=== PATIENT | female | born 1980 | race Caucasian/White ===

== ENCOUNTER 2019-09-30 13:58 | Outpatient (CLI) | payer BC, SELFPAY ==
--- NOTE | ~2019-09-30 | XR_ITS ---
XR lumbar spine 2-3V DATE: 09/30/2019 14:27 INDICATION: Low back pain, left hip pain. No known injury. TECHNIQUE: AP, lateral, coned lateral lumbosacral views COMPARISON: None FINDINGS: There is prominent loss of interspace height at L4-5. The remaining lumbar and lumbosacral interspaces are relatively preserved. No fracture or bone destruction. There is minimal levoscoliosis of the lumbar spine. The included low er thoracic and lumbar pedicles are intact. The sacroiliac joints are intact. Surgical clip overlies right upper quadrant, likely due to cholecystectomy. IUD overlies the mid pelvis. IMPRESSION: Prominent loss of interspace height at L4-5 Mild levoscoliosis of lumbar spine Reviewed, dictated and finalized at location A.
--- NOTE | ~2019-09-30 | XR_ITS ---
EXAMINATION: XR hip LT min 2V DATE: 09/30/2019 14:26 INDICATION: Left hip pain. TECHNIQUE: 3 views of left hip were obtained. COMPARISON: None. FINDINGS: Bone alignment is normal. No fracture. Left hip joint space is normal. There is an intraute rine device in expected position. IMPRESSION: 1. Normal left hip. Reviewed, dictated and finalized at location A. IMPRESSION: 1. Normal left hip.
== END 2019-09-30 13:59 | disposition home or self-care (01) ==
PROVIDERS: PCP Family Medicine; Visit Provider Family Medicine
DX: M54.5 Low back pain (principal); M25.552 Pain in left hip
CPT/HCPCS: 72100; 73502

== ENCOUNTER 2019-11-19 13:47 | Outpatient (CLI) | payer BC, SELFPAY ==
[2019-11-19 14:38] LABS: Basophils Absolute Auto 0.1 K/mm3 (0.0-0.1); Basophils Percent Auto 0.6 % (0.2-1.2); Eosinophils Absolute Auto 0.2 K/mm3 (0-0.3); Eosinophils Percent Auto 2.6 % (0-4.4); Hematocrit 35.9 % (37.0-47.0); Hemoglobin 11.4 g/dL (12.0-15.0); Immature Granulocyte Absolute 0.02 K/mm3 (0.00-0.031); Immature Granulocyte Percent A 0.3 % (0-0.5); Lymphocytes Absolute Auto 2.77 K/mm3 (0.9-3.2); Lymphocytes Percent Auto 34.8 % (18.3-44.2); Mean Corpuscular HGB Conc 31.8 g/dl (32-36); Mean Corpuscular Hemoglobin 26.6 pg (26-34); Mean Corpuscular Volume 83.7 fl (80-100); Mean Platelet Volume 10.6 fl (7.4-10.4); Monocytes Absolute Auto 0.6 K/mm3 (0.1-0.6); Monocytes Percent Auto 7.5 % (2.6-8.5); Neutrophils Absolute Auto 4.3 K/mm3 (1.3-6.7); Neutrophils Percent Auto 54.2 % (45.5-73.1); Platelet Count Result 286 k/mm3 (150-375); Red Blood Count 4.29 M/mm3 (4.2-5.4); Red Cell Distribution Width 13.8 % (11.5-14.5)
[2019-11-19 14:52] LABS: CRP 0.7 mg/dL (<1.0)
[2019-11-19 15:23] LABS: Erythrocyte Sedimentation Rate 19 mm/hr (0-20)
== END 2019-11-19 13:48 | disposition home or self-care (01) ==
PROVIDERS: PCP Family Medicine; Visit Provider Orthopaedic Surgery
DX: M54.5 Low back pain (principal)
CPT/HCPCS: 36415; 85025; 85652; 86140; 87040

== ENCOUNTER 2023-07-10 14:34 | Outpatient (CLI) | payer BC, SELFPAY ==
--- NOTE | ~2023-07-10 | XR_ITS ---
EXAM: XR hip LT 2V w AP pelvis DATE: 07/10/2023 14:58 HISTORY: PAIN OF LEFT HIP JOINT X 1 MONTH . COMPARISON: 09/30/2019. FINDINGS: Normal mineralization. No fracture or dislocation. No lytic or blastic lesion. Joint space s are maintained. Disc space narrowing in the lower lumbar spine. Degenerative changes at the pubic s ymphysis. No erosion or periosteal change. IUD. Pelvic phleboliths. IMPRESSION: No acute osseous finding in the pelvis or left hip. Lumbar degenerative disc disease. Mil d osteitis pubis. Reviewed, dictated and finalized at location K. IMPRESSION: No acute osseous finding in the pelvis or left hip. Lumbar degenera tive disc disease. Mild osteitis pubis.
== END 2023-07-10 14:35 | disposition home or self-care (01) ==
LOC: ANHIMG 14:36
PROVIDERS: PCP Family Medicine; Visit Provider Family Medicine
DX: M25.552 Pain in left hip (principal)
CPT/HCPCS: 73502

== ENCOUNTER 2024-12-21 03:28 | Emergency (ER) | payer OTHER, SELFPAY ==
--- OUTSIDE RECORDS SUMMARY | 2012-04-01 18:00 | XMS_ITS | Continuity of Care Document ---
Author Organization [facility] Address [address] [place] [address] Phone Care Team Providers Care Biofuels Production Manager Name Role Phone Unavailable Unavailable Unavailable Advance Directives Directive Yes / No Effective Date File Name No Information Encounters Encounter Description Practice Location Reason(s) For Visit Diagnoses Date Provider Providers Copied on Encounter [facility], [address], [place], [place], [id number], [place] tel:[phone] [facility] OUTPATIENT No Information 2201 2 No Information Referring Provider: CHHAYA YADAV N, [address] [place], [address]. tel:[phone] Family History Family Member Type Diagnosis Age At Onset No Information Payers Payer name Insurance type Covered alliance party ID Authoraaron benson(s) [facility] PPO [id number] Social History Type Description Quantity Date Captured Comments Sex Female Smoking Status No Information Chief Complaint And Reason For Visit No Information History Of Present Illness Encounter Date Complaint History Of Prese nt Illness No Information Instructions Date Instruction Additional Infor mation No Information Assessments Type Assessment Date No Information
--- OUTSIDE RECORDS SUMMARY | 2024-12-21 03:30 | XMS_ITS | Continuity of Care Document ---
Author Name [facility] Organization [facility] Care Team Providers Care Component Inspector Name Role Phone [facility] Unavailable Unavailable Problems Combined list of problems from Department of Defense and Veterans Affairs facilities. It does not include entries that were removed or entered in error. Problem Status Onset Date Problem Type Date of Resolution Comments Source visit for: administrative purpose Inactive Condition DoD ESOPHAGEAL REFLUX Active Condition [facility] MIGRAINE HEADACHE Active Condition di scussed migraine journal, which she will start today. I will start trial of abortive meds and she will see me in 30 days [facility] abdominal pain Inactive Condition f/u prn DoD Encounters Combined list of: 1) Encounters from Department of Veterans Affairs facilities going backup to the last 18 months, not all VA inpatient encounters are included; 2) Encounters from the Department of [facility] facilities going backup to 280 months. Location Location Details Encounter Type Encounter Number Reason For Visit Attending Provider ADM Date DC Date Status Disposition Source [address] [place] [address])([facility] Non-[facility]) OUTPATIENT [id number] stomach pains KATIANA COONEY 08/04 Released w/o Limitations [address] [place] [address])(F amily Practic e Non-[facility]) [address] [place] [address])([facility]am [facility] Practice Non-[facility]) OUTPATIENT [id number] headach es KATIANA COONEY 10/28 Released w/o Limitations [address] [place] [address])(F amily Practic e Non-[facility]) [address] [place] [address])([facility]am [facility] Practice Non-[facility]) TELE CONSULT [id number] L ARM/RADHA [facility] PAIN BOONE DON 03/[address] [place] [address])(F amily Practic e Non-GME [facility]) Procedures Combined list of: 1) Procedures from Department of Veterans Affairs facilities going back up to thelast 18 months, not all VA non-surgical procedures are included; 2) All procedures from the Department of [facility] facilities. Procedure Procedure Type Code Date Perfomer Comments Sour e ELECTROCARDIOGRAM, ROUTINE ECG WITH AT LEAST 12 LEADS; WITH INTERPRETATION AND REPORT 03/10/2005 [facility] NONINVASIVE EAR OR PULSE OXIMETRY FOR OXYGEN SATURATION; SINGLE DETERMINATION 09/06/2002 [facility] Social History Combined list of available smoking, tobacco, and other social history from Department of Defense and Veterans Affairs facilities. Social History Type Response Date Comment [facility] This section is an empty social history section. DoD
--- OUTSIDE RECORDS SUMMARY | 2024-12-21 03:31 | XMS_ITS | Clinical Summary ---
Author Organization [facility] Address [facility] [place] [address] Care Team Providers Care Packaging Line Operator Name Role Phone Unavailable Primary Care Provider Unavailabl e Social History Tobacco Use Types Packs/Day Years Used Date Smoking Tobacco: Never Assessed Comments Unknown Sex and Gender Information Value Date Recorded Sex Assigned at Not on file Legal Sex Female 7:43 PM CDT Gender Identity Not on file Sexual Orientation Not on file Plan of Treatment Health Maintenance Due Date Last Done Comments Cervical Cancer Screening Pa p Smear (Age 30 to 64) Every 3 Years 1982 Annual Physical 1985 Hepatitis C 2000 DTaP, Tdap and Td Vaccines ( 1 - Tdap) 2001 Hepatitis B Vaccines (1 of 3 - 19+ 3-dose series) 2001 HPV Vaccines (1 - 3-dose SCD M series) 2009 Cervical Cancer Screening Pa p with HPV Testing (Age 30 to 64) Every 5 Years 2012 Cervical Cancer Screening with HPV 2012 Mammogram Screening 2022 COVID-19 Vaccine ( - 2023-2 5 season) 2023 Meningococcal B Vaccine Aged Out No l onger eligible based on patient's age to complete this topic Meningococcal Vaccine Aged Out No kady kimberly eligible based on patient's age to complete this topic Pneumococcal Vaccine: Pediat rics (0 to 5 Years) and At-Risk Patients (6 to 49 Years) Aged Out No longer eligible b ased on patient's age to complete this topic RSV Immunizations Under 20 Months Aged Out No longer eligible based on patient's age to complete this topic
--- OUTSIDE RECORDS SUMMARY | 2024-12-21 03:31 | XMS_ITS | Encounter Summary ---
Author Organization [facility] Address [address] [place] [address] Phone Care Team Providers Care Grants Analyst Name Role Phone Leslie Mabry PRETZEL PACKER Primary Care Provider + Mercedes Soto MD Primary Care Provider + Angely Obregon PRETZEL PACKER Unavailable [phone] Encounter Details Date Type Department Care Team (Latest Contact Info) Description 06/15/2017 Orders Only [facility] CONVERSION Scanning, Provider Social History Tobacco Use Types Packs/Day Years Used Date Smoking Tobacco: Never Smokeless Tobacco: Never Alcohol Use Standard Drinks/Week Comments Yes 0 (1 standard drink = 0.6 oz pur e alcohol) Comments Unknown Sex and Gender Information Value Date Recorded Sex Assigned at Not on file Legal Sex Female 2:18 AM WORKPLACE TRAINER AND ASSESSOR Gender Identity Not on file Sexual Orientation Not on file documented as of this encounter Plan of Treatment Not on file documented as of this encounter Procedures Procedure Name Priority Date/Time Associated Diagnosis Comments VASCULAR LABORATORY REPORT 06/15/2017 10:59 PM WORKPLACE TRAINER AND ASSESSOR documented in this encounter Results * VASCULAR LABORATORY REPORT (06/15/2017 10:59 PM WORKPLACE TRAINER AND ASSESSOR) Anatomical Region Laterality Modality Ultrasound us Provider Scanning CV VASCULAR PROCEDURES Final R esult documented in this encounter Visit Diagnoses Not on filedocumented in this encounter Care Teams Grants Analyst Relationship Specialty Start Date End Date Leslie Mabry NP PCP - General 06/09/17 12/19/17 Mercedes Soto MD PCP - General Family Medicine 12/20/17 Angely Obregon NP Nurse Practitioner Obstetrics and Gynecology 07/14/20 documented as of this encounter
--- OUTSIDE RECORDS SUMMARY | 2024-12-21 03:31 | XMS_ITS | Clinical Summary ---
Author Organization [facility] [address] Address [address] [facility] [address] [place] [address] Phone Care Team Providers Care Reservation Manager Name Role Phone Marta Fernandez MD Primary Care Provider [phone] Allergies No known active allergies Medications levonorgestreL (MIRENA) 21 mcg/24 hr (8 yrs) 52 mg IUD 1 Each by Intrauterine route. Active metoprolol succinate (TOPROL XL) 25 mg Extended Release 24 hour tablet Take 25 mg by mouth daily. Active omeprazole (PriLOSEC) 20 mg Capsule, Delayed Release(E.C.) Take 20 mg by mouth daily. 2 Active hyoscyamine 0.[address] 1 Tablet (0.125 mg) under tongue every 4 hours as needed for Spasm. 30 Tablet 11 4 Active Active Problems Problem Noted Date Diagnosed Date Epigastric abdominal pain 11/28/2023 Malignant neoplasm of pancreas Encounters Date Type Department Care Team Description 12/04/2024 External Device Data ST[facility] ABSTRACTION Provider, Abstract 11/13/2024 External Device Data [facility] ABSTRACTION Provider, Abstract 11/13/2024 External Device Data [facility] ABSTRACTION Provider, Abstract 11/12/2024 External Device Data ST[facility] ABSTRACTION Provider, Abstract 10/22/2024 External Device Data ST[facility] ABSTRACTION Provider, Abstract 09/24/2024 External Device Data ST[facility] ABSTRACTION Provider, Abstract from Last 3 Months Family History Medical History Relation Name Comments Colon Cancer Neg Hx Social History Tobacco Use Types Packs/Day Years Used Date Smoking Tobacco: Former Cigarettes Smokeless Tobacco: Never Alcohol Use Standard Drinks/Week Comments Yes 0 (1 standard drink = 0.6 oz pur e alcohol) Comments No Sex and Gender Information Value Date Recorded Sex Assigned at Not on file Legal Sex Female 6:11 AM CAR LOT ATTENDANT Gender Identity Not on file Sexual Orientation Not on file Last Filed Vital Signs Vital Sign Reading Time Taken Comments Blood Pressure 108/78 11/28/2023 12:56 PM CDT Pulse 82 11/28/2023 12:56 PM CDT Temperature - - Respiratory Rate - - Oxygen Saturation - - Inhaled Oxygen Concentration - - Weight 104.3 kg (230 lb) 11/28/2023 12:56 PM CDT Height 160 cm (5' 3) 11/28/2023 12:56 PM CDT Body Mass Index 40.74 11/28/2023 12:56 PM CDT Plan of Treatment Health Maintenance Due Date Last Done Comments HEPATITIS B VACCINES (1 of 3 - 19+ 3-dose series) 2001 HPV/Cotest (21-29) 2003 HPV VACCINES (1 - 3-dose SCD M series) 2009 HPV/Cotest (30-65) 2012 BREAST CANCER SCREENING 08/09/2024 08/10/19 24, 08/10/2023, 07/15/2022, Additional history exists INFLUENZA VACCINE (#1) 2024 CERVICAL CANCER SCREENING 10/10/2026 PAP SMEAR 10/10/2026 10/11/2023 DTAP/TDAP/TD VACCINES (2 - T d or Tdap) 11/10/2027 11/09/[address] FEDERAL Care Teams Reservation Manager Relationship Specialty Start Date End Date Marta Fernandez MD [address] [phone] [facility] - General 04/17/15
--- OUTSIDE RECORDS SUMMARY | 2024-12-21 03:31 | XMS_ITS | Clinical Summary ---
Author Organization [facility] [address] Address [address] [place] [address] Care Team Providers Care Suture Winder Hand Name Role Phone Mercedes Soto MD Primary Care Provider + Angely Obregon ELECTRIC METER INSTALLER Unavailable [phone] Allergies No known active allergies Medications metoprolol XL (TOPROL-XL) 25 mg 24 hr tablet Take 1 tablet (25 mg total) by mouth daily Active multivitamin capsule Take 1 capsule by mouth daily Active levonorgestrel (MIRENA) IUD 1 each by intrauterine route once Active omeprazole (PriLOSEC) 20 mg capsule Take 1 capsule (20 mg total) by mouth daily 2 Active drospirenone, contraceptive, (Slynd) tablet tablet Take 1 tablet every day by oral route as directed for 60 days. 4 Active Active Problems Problem Noted Date Diagnosed Date Mass of pancreas 01/29/2019 -induced hypertension 11/24/2014 Overview (08/05/2016): Gestational hypertension, antepartum Ventricular premature beats 11/24/2014 Overview (08/05/2016): Symptomatic PVCs Gastroesophageal reflux disease 11/24/2014 Overview (08/05/2016): GERD (gastroesophageal reflux disease) Adiposity 11/24/2014 Overview (08/05/2016): Obesity Tobacco dependence syndrome 09/14/2013 Overview (08/04/2016): TOBACCO USE DISORDER Morbid obesity 09/14/2013 Overview (08/04/2016): MORBID OBESITY Palpitations 09/14/2013 Overview (08/04/2016): PALPITATIONS Premature beats 09/14/2013 Overview (08/05/2016): PREMATURE BEATS NEC Surgical History Surgery Date Site/Laterality Comments BREAST BIOPSY 07/15/2020 Left Medical History Medical History Date Comments Ventricular premature depolarization Pancreatic cancer (HCC) Hypertension Anemia Family History Medical History Relation Name Comments Hypertension Father Hypertension; Other Mother A&W; No Known Problems Sister 1 No Known Problems Sister 2 No Known Problems Sister 3 Relation Name Status Comments Father Alive Mother Alive Sister 1 Alive Sister 2 Alive Sister 3 Alive Social History Tobacco Use Types Packs/Day Years Used Date Smoking Tobacco: Former Cigarettes 1 2012 Smokeless Tobacco: Never Tobacco Cessation:Counseling Given: Not Answered Alcohol Use Standard Drinks/Week Comments Yes 0 (1 standard drink = 0.6 oz pur e alcohol) AUDIT-C Answer Date Recorded Q1: How often do you have a drink containing alc ohol? 2-3 times a week 07/21/2021 Q2: How many drinks containi ng alcohol do you have on a typical day when you are drinking? 3 or 4 07/21/2021 Q3: How often do you have si x or more drinks on one occasion? Less than monthly 07/21/2021 Comments No Sex and Gender Information Value Date Recorded Sex Assigned at Not on file Legal Sex Female 2:18 AM CURER ACID DRUM Gender Identity Not on file Sexual Orientation Not on file Obstetrics History Last Filed Vital Signs Vital Sign Reading Time Taken Comments Blood Pressure 115/82 04/15/2024 1:46 PM CURER ACID DRUM Pulse 66 04/15/2024 1:46 PM CURER ACID DRUM Temperature 36.8 C (98.2 F) 04/15/2024 1:46 PM CURER ACID DRUM Respiratory Rate 16 04/15/2024 1:46 PM CURER ACID DRUM Oxygen Saturation 98% 04/15/2024 1:46 PM CURER ACID DRUM Inhaled Oxygen Concentration - - Weight 107.8 kg (237 lb 9.6 oz) 04/15/2024 1:46 PM CURER ACID DRUM Height 162.6 cm (5' 4.02) 04/15/2024 1:46 PM CS T Body Mass Index 40.76 04/15/2024 1:46 PM CURER ACID DRUM Plan of Treatment Health Maintenance Due Date Last Done Comments Cervical Cancer Screening 1982 Depression Screening 1982 Hepatitis C Screening 1982 Varicella Vaccines (1 of 2 - 13+ 2-dose series) 1995 Hepatitis B Screening 2000 Regular Well Visit/Exam 18-64 2000 HPV Vaccines (1 - 3-dose SCDM series) 2009 Influenza Vaccine (#1) 2024 Breast Cancer Screening-Mammogram 08/23/2025 08/23/2024, 08/10/2023, 07/15/2022, Additional history exists DTaP/Tdap/Td Vaccine (2 - Td or Tdap) 11/10/2027 11/09/2017 Pneumococcal vaccine <65 Aged Out No longer eligible based on patient's age to complete this topic Procedures Procedure Name Priority Date/Time Associated Diagnosis Comments SCREENING MAMMOGRAM BILATERAL W MAURICIO Schedule Routine, Read Routine (OP Routine) 08/23/2024 12:34 PM CDT Screening mammogram, encounter for from Last 3 Months or Most Recently Relevant to Health Maintenance Results * Screening Mammogram Bilateral W Mauricio (08/23/2024 12:34 PM CDT) Anatomical Region Laterality Modality Breast Bilateral Mammography Narrative 08/26/2024 3:25 PM CDT Mammogram Technique: Bilateral Digital Breast Tomosynthesis, Bilateral C-view 2D Screening mammogram. Views obtained: bilateral craniocaudal and bilateral mediolateral oblique. Computer Aided Detection was performed. Mammogram Findings: The present examination has been compared to prior imaging studies performed at [facility] on 06/09/2017, 07/07/2020, 07/15/2022 and 08/10/2023. There are scattered areas of fibroglandular density. There is no suspicious abnormality in either breast. There are no significant changes from the prior study. Impression: There is no mammographic evidence of malignancy. Annual screening mammography is recommended. OVERALL FINAL ASSESSMENT: BI-RADS CATEGORY 1: Negative. Procedure Note Denisha Levi MD - 08/26/2024 Mammogram Technique: Bilateral Digital Breast Tomosynthesis, Bilateral C-view 2D Screening mammogram. Views obtained: bilateral craniocaudal and bilateral mediolateral oblique. Computer Aided Detection was performed. Mammogram Findings: The present examination has been compared to prior imaging studies performed at [facility] on 06/09/2017, 07/07/2020,07/15/2022 and 08/10/2023. There are scattered areas of fibroglandular density. There is no suspicious abnormality in either breast. There are no significant changes from the prior study. Impression: There is no mammographic evidence of malignancy. Annual screening mammography is recommended. OVERALL FINAL ASSESSMENT: BI-RADS CATEGORY 1: Negative. us Self Screening Mammogram IMG MAMMO PROCEDURES Fi nal Result from Last 3 Months or Most Recently Relevant to Health Maintenance Insurance Datam [facility] [employer] [place] [address] [employer] [address] [place] [phone] Advance Directives For more information, please contact: [phone] * Full Code (Latest Code Status on File) Date Activated Date Inactivated Comments 07/21/2021 7:58 AM 07/21/2021 1:53 PM Care Teams Suture Winder Hand Relationship Specialty Start Date End Date Mercedes Soto MD PCP - General Family Medicine 12/20/17 Angely Obregon NP Nurse Practitioner Obstetrics and Gynecology 07/14/20
--- OUTSIDE RECORDS SUMMARY | 2024-12-21 03:31 | XMS_ITS | Clinical Summary ---
Author Organization [facility] Facility Address [address] [address] Care Team Providers Care Barrel Straightener Name Role Phone Bel Jean STARS ANALYTICAL LEAD-C Primary Care Provider [phone] Allergies No known active allergies Medications hydroCHLOROthiaz vasquez 25 MG tablet Take 25 mg by mouth if needed Active hydrOXYzine (ATARAX) 25 MG tablet Take 25 mg by mouth every 8 (eight) hours if needed 06/19/2024 Active metoprolol succinate XL (TOPROL XL) 25 MG 24 hr tablet Take 1 tablet by mouth 1 (one) time each day 06/19/2024 Active omeprazole OTC (PriLOSEC OTC) 20 MG EC tablet Take 20 mg by mouth 1 (one) time each day Do not crush, chew, or split. Active Active Problems Problem Noted Date Diagnosed Date Obese class II 10/22/2024 Overview (10/22/2024): BMI = 41.6 Gastroesophageal reflux disease 09/10/2024 Hypoglycemia 09/06/2024 Hyperlipidemia 06/19/2024 Anxiety disorder 08/02/2022 Essential hypertension 05/12/2016 Resolved Problems Problem Noted Date Diagnosed Date Resolved Date Increased anion gap 09/10/2024 10/23/19 Carcinoma of pancreas 06/01/20172017 Encounters Date Type Department Care Team Description 10/22/2024 10:30 AM CDT Office Visit [facility], [facility] [address] [facility] [address] [place] [address] Brian Davison MD Essential hypertension (Primary Dx); Hyperlipidemia, not otherwise specified; Hypoglycemia, not otherwise specified; Gastroesophageal reflux disease; Obese class II 10/15/2024 Documentation Only [address] [address] Brian Davison MD from Last 3 Months Social History Tobacco Use Types Packs/Day Years Used Date Smoking Tobacco: Never Smokeless Tobacco: Never Tobacco Cessation:Counseling Given: Not Answered Alcohol Use Standard Drinks/Week Comments Yes 0 (1 standard drink = 0.6 oz pur e alcohol) Comments Unknown Sex and Gender Information Value Date Recorded Sex Assigned at Not on file Legal Sex Female 10:01 AM EST Gender Identity Not on file Sexual Orientation Not on file Last Filed Vital Signs Vital Sign Reading Time Taken Comments Blood Pressure 118/62 10/22/2024 10:55 AM CDT Pulse 59 10/22/2024 10:55 AM CDT Temperature 36.7 C (98 F) 09/10/2024 11:10 AM CDT Respiratory Rate 18 10/22/2024 10:55 AM CDT Oxygen Saturation 98% 10/22/2024 10:55 AM CDT Inhaled Oxygen Concentration - - Weight 107 kg (235 lb) 10/22/2024 10:55 AM CDT Height 160 cm (5' 3) 10/22/2024 10:55 AM CDT Body Mass Index 41.63 10/22/2024 10:55 AM CDT Plan of Treatment Health Maintenance Due Date Last Done Comments Hepatitis B Vaccine (1 of 3 - 19+ 3-dose series) 06/13 Pneumococcal Vaccine: Peds ( 0 to 5 Years) and At-Risk Patients (6 to 49 Years) (1 of 2 - PCV) 2001 Influenza Vaccine (#1) 2024 Insurance [employer] Commercial Care Teams Barrel Straightener Relationship Specialty Start Date End Date Bel Jean FNP-C [address] [place] [address] PCP - General Family Medicine 06/26/24
--- OUTSIDE RECORDS SUMMARY | 2024-12-21 03:31 | XMS_ITS | Clinical Summary ---
Author Organization [facility] Address [address] [place] [address] Phone Care Team Providers Care Auto Parts Salesperson Name Role Phone Unavailable Primary Care Provider Unavailabl e Social History Tobacco Use Types Packs/Day Years Used Date Smoking Tobacco: Never Assessed Comments Unknown Sex and Gender Information Value Date Recorded Sex Assigned at Not on file Legal Sex Female 10:39 AM MOLD SWABBER Gender Identity Not on file Sexual Orientation Not on file Plan of Treatment Not on file
[2024-12-21 03:32] VITALS: BP 145/76; PULSE 62; RESP 16; TEMP 36.8; O2SAT 97
[2024-12-21 03:39] VITALS: O2SAT 100
--- NOTE | 2024-12-21 03:41 | ED.ALLEREA ---
HPI - Allergic Reaction General Chief complaint: Allergic Reaction Stated complaint: hives Time Seen by Provider: 12/21/24 03:29 History of Present Illness HPI narrative: Patient is a 44-year-old female who presents to the emergency department this morning complaining of an allergic reaction. Patient states that she went to bed around 11:00 p.m. feeling fine and woke up at 1:00 a.m. with some itchiness at to her. Patient did not think much of it room back to sleep woke up a few hours later and noticed a rash to her bilateral arms and back. Rash does appear to be urticarial. Patient does not recall using any new products or eating any new foods, states that throughout the day yesterday nothing was at of the ordinary. Denies any known allergies to any allergens. Denies any chest pain or shortness of breath. denies any additional symptoms or concerns at this time. Patient did take 50 mg of Benadryl prior to arrival and 1 Tums for her acid reflux which she is on omeprazole for chronically. Related Data Home Medications ?Medication ?Instructions ?Recorded ?Confirmed ?Last Taken ?Type metoprolol succinate 25 mg mg PO 12/21/24 Unknown History tablet,extended release 24 hr omeprazole 20 mg capsule,delayed mg 12/21/24 Unknown History release Allergies Allergy/AdvReac Type Severity Reaction Status Date / Time No Known Allergies Allergy Verified 12/21/24 03:35 Review of Systems Review of Systems: All systems are reviewed and are negative unless stated otherwise in the HPI. Exam Narrative: General: Alert, awake, afebrile, in no acute distress. HEENT: PERRL, no rhinorrhea, no post nasal drip, oropharynx clear. Neck: Trachea midline, no JVD, no lymphadenopathy. Cardiovascular: Regular rate and rhythm, no murmurs, rubs or gallops, no peripheral edema. Respiratory: Clear to auscultation bilaterally, no tachypnea, no wheezing, no rhonchi, no rubs, no respiratory distress. Abdomen: Soft, nontender, nondistended, no rebound, no guarding, no peritoneal signs. Musculoskeletal: No joint swelling or deformity, normal muscle tone. Skin: Urticarial rash noted to the bilateral upper extremity and back. Psychiatric: Alert and oriented, normal behavior and judgment for situation. Neurological: Alert and oriented to person, place, and time. Follows all commands. No focal deficits, speech is clear and fluent. Course Vital Signs Vital signs: Vital Signs Temperature 98.2 F 12/21/24 03:32 Pulse Rate 62 12/21/24 03:32 Respiratory Rate 16 12/21/24 03:32 Blood Pressure 145/76 H 12/21/24 03:32 Pulse Oximetry 97 12/21/24 03:32 Oxygen Delivery Room Air 12/21/24 03:32 Temperature 98.2 F 12/21/24 03:32 Pulse Rate 62 12/21/24 03:32 Respiratory Rate 16 12/21/24 03:32 Blood Pressure 145/76 H 12/21/24 03:32 Pulse Oximetry 100 12/21/24 03:39 Oxygen Delivery Room Air 12/21/24 03:39 MDM - Allergic Reaction MDM Narrative Medical decision making narrative: The patient was evaluated by myself in the emergency department. History is obtained from patient who is an independent historian and physical exam was performed. External medical records were reviewed at this time. IV was established and pertinent tests were ordered. Patient was administered 20 mg IV Pepcid, 25 mg of IV Benadryl and 125 mg of IV Solu-Medrol. On repeat assessment, patient states that her significantly feels better, rash has significantly improved. Differential diagnosis considerations include Contact dermatitis, urticaria, allergic reaction Comorbidities impacting this visit include none. I have evaluated and discussed social determinants of health with the patient that could potentially impact subsequent diagnosis and treatment plans. On repeat assessment of the patient, reevaluation revealed that the patient is doing well and is in no acute distress. Patient symptoms have improved since she arrived to our emergency department. Repeat vital signs were all reviewed and noted to be stable. Differential diagnosis and treatment plan were discussed with the patient at bedside. Patient agrees with discussion and after shared medical decision making agrees with discharge. All questions were answered to the patient's satisfaction. Patient will follow up with her PCP in 3-5 days. a script for Medrol Dosepak was sent to patient's pharmacy to take as prescribed patient also instructed to use Benadryl as needed. Patient was provided with strict return precautions and instructed to return to the emergency department if any new or worsening symptoms develop. The patient was discharged in stable condition. Discharge Plan Discharge Clinical Impression: Allergic reaction, Urticaria Patient Disposition: Home Condition: Improved Instructions: Antibiotic Form, Urticaria (ED) Additional Instructions: Please follow-up with the family doctor within the next 3-5 days. Take the prescribed steroid pack as instructed. Reurn to the ED if any new or worsening symptoms develop. Patient Language: Japanese Prescriptions: New methylprednisolone [Medrol (Adalberto)] 4 mg tablets,dose pack See Rx Instructions .ROUTE .COMPLEX Qty: 21 0RF Rx Instructions: for 6 days No Action omeprazole 20 mg capsule,delayed release(DR/EC) metoprolol succinate 25 mg tablet extended release 24 hr PO Follow-up/Referrals: Charles,Mercedes Olivares MD [Primary Care Provider] - 3 Days Time of Disposition: 05:06
[2024-12-21] MEDS: FAMOTIDINE 20 MG/2 ML VIAL IV PUSH (03:47)
[2024-12-21 05:10] VITALS: BP 112/63; PULSE 60; RESP 18; O2SAT 99
== END 2024-12-21 05:11 | disposition home or self-care (01) ==
PROVIDERS: Emergency Provider Emergency Medicine; PCP Family Medicine
DX: T78.40XA Allergy, unspecified, initial encounter (principal); L50.0 Allergic urticaria; X58.XXXA Exposure to other specified factors, initial encounter
CPT/HCPCS: 96374; 96375; 99284; J1200; J2919